=== PATIENT | male | born 1985 | race African-American/Black ===

== ENCOUNTER 2022-05-28 03:35 | Emergency (ER) | payer OTHER, SELFPAY ==
--- NOTE | 2022-05-28 | ECG_ITS ---
Test Reason : high bp Blood Pressure : / mmHG Vent. Rate : 050 BPM Atrial Rate : 050 BPM P-R Int : 156 ms QRS Dur : 080 ms QT Int : 426 ms P-R-T Axes : 028 000 006 degrees QTc Int : 388 ms Sinus bradycardia with sinus arrhythmia Otherwise normal ECG No previous ECGs available Referred By: Generic ED Physician Electronically Signed By:NUVIA SARMIENTO
--- NOTE | ~2022-05-28 | XR_ITS ---
EXAMINATION: XR CHEST CLINICAL INFORMATION: Cough for 10 days. COMPARISON: None TECHNIQUE: 2 views of the chest were obtained. FINDINGS: No significant abnormality is noted involving the heart, lungs, mediastinum, bony thorax or soft tissues. XR/XR chest 2V IMPRESSION: Unremarkable examination.
[2022-05-28 03:50] VITALS: BP 149/102; PULSE 59; RESP 16; TEMP 36.2; O2SAT 95; BMI 33.6
--- NOTE | 2022-05-28 04:17 | PC.NURSE ---
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
--- NOTE | 2022-05-28 06:37 | ED.GENADULT ---
HPI - General Adult General Chief complaint: General Medical Stated complaint: Sinus Time Seen by Provider: 05/28/22 06:37 Source: patient Mode of arrival: ambulatory Limitations: no limitations History of Present Illness HPI narrative: cough, lightheaded for one week. Patient had a COVID test was negative 10 days. Not vaccinated. Nasal congestion. Onset (ago): day(s) Severity: mild Associated symptoms: cough, fever/chills and headaches Related Data Previous Rx's Medication Instructions Recorded yhragpnlxojdk-XB-[id number] 2.5 30 ml PO Q6-8H PRN cough #118 mL 05/28/22 mg-5 mg-50 mg/5 mL oral liquid (Robitussin Cough and Cold CF) Allergies Allergy/AdvReac Type Severity Reaction Status Date / Time No Known Allergies Allergy Verified 05/28/22 06:40 Review of Systems Constitutional: Constitutional: Reports no additional constitutional complaints Eyes: Eyes: Reports no additional eye complaints ENT: Denies dizziness Cardiovascular: Cardiovascular: Reports no additional cardiovascular complaints Respiratory: Respiratory: Reports as per HPI Gastrointestinal: Gastrointestinal: Reports no additional gastrointestinal complaints Musculoskeletal: Musculoskeletal: Reports no additional musculoskeletal complaints Integumentary/Breasts: Skin/Breast: Denies rash Neurologic: Reports system reviewed and no additional complaints, except as documented, Denies dizziness and Denies Sensory deficit (Neuro) Psychiatric: Psychiatric: Denies anxiety [facility] Social History Social History Advance Directives: No Advance Directives Information Provided: No Physical Exam ED Vital Signs: Vital Signs - 24 hr 05/28/22 03:50 Temperature 97.1 F Pulse Rate 59 Respiratory Rate 16 Blood Pressure 149/102 H Pulse Oximetry 95 Oxygen Delivery Method Room Air BMI result Body Mass Index 33.6 Const Other: continous cough General: healthy appearing Nutritional Appearance: average body habitus Orientation/consciousness: oriented to person and patient oriented x3 Limitations: no limitations HENMT Head: Yes normal to inspection Ears: external ears normal General nose exam: Normal external nose present Mouth: Normal oral and palatal mucosa present and oropharynx normal Throat: Yes posterior oropharynx normal Eyes General: appearance normal, both eyes and all related structures Neck Neck: Yes normal visual inspection Chest Chest palpation & inspection: normal inspection of the chest Resp Auscultation: clear to auscultation bilaterally Cardio Jugular venous distension: no JVD Rate: regular rate Rhythm: regular rhythm Heart sounds: S1 normal heart sound present and S2 normal heart sound present GI Inspection: Yes normal to inspection Palpation (GI): Soft to palpation, nontender and No hepatosplenomegaly present Auscultation: normal bowel sounds General: Yes no CVA tenderness Back/Spine/Pelvis Back: no CVA tenderness Skin General skin exam: no rashes or lesions noted Neuro General: oriented to person and patient oriented x3 Cranial nerves: Yes CN's II-XII intact bilaterally Motor exam (neuro): 5/5 motor strength present throughout Sensory Exam: No Sensory deficit (Neuro) Extrem General: Yes normal to inspection Psych Appearance: grossly normal Course Course Course Narrative: patient is clearly aggravated refusing testing at this time Reevaluation(s) Reevaluation #1: Patient refusing COVID testing chest xray negative, his cough sounds like COVID will dc home Time: 08:16 Medical Decision Making Imaging Data Chest x-ray: Radiologist's impression: FINDINGS: No significant abnormality is noted involving the heart, lungs, mediastinum, bony thorax or soft tissues. XR/XR chest 2V IMPRESSION: Unremarkable examination. Discharge Plan Discharge Clinical Impression: COVID-19 Patient Disposition: Home, Self-Care Instructions: COVID-19 (Coronavirus Disease 2019) (ED) Prescriptions: New Robitussin Cough and Cold CF 2.5-5-50 mg/5 mL liquid 30 ml PO Q6-8H PRN (Reason: cough) Qty: 118 0RF Referrals: Physician,Unknown J [Primary Care Provider] - 1 week
--- NOTE | 2022-05-28 06:39 | PC.NURSE ---
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
[2022-05-28 08:15] VITALS: BP 168/109; PULSE 74; RESP 18
[2022-05-28] MEDS: guaiFENesin 200 MG/10 ML 10 ML LIQUID PO (08:53)
--- NOTE | 2022-05-28 09:00 | PC.NURSE ---
OK FOR DC PER PRIMARY RN PT AWAKE, ALERT AND ORIENTED X 3. SKIN WARM AND DRY. PT DRESSED, TALKING ON PHONE IN ROOM. ATTEMPTED TO PROVIDE DC PAPERWORK AND PATIENT STATES HE DOESNT AGREE WITH THE DC. EVERYTHING IS COVID PT REFUSED SWABS SUGGESTED BY PROVIDER
== END 2022-05-28 09:06 | disposition home or self-care (01) ==
PROVIDERS: Emergency Provider Emergency Medicine
DX: U07.1 COVID-19 (principal); R05.9 Cough, unspecified; R50.9 Fever, unspecified; M79.10 Myalgia, unspecified site; R51.9 Headache, unspecified; Z79.899 Other long term (current) drug therapy
CPT/HCPCS: 71046; 93005; 99283; 99284